=== PATIENT | female | born 1995 | race Caucasian/White ===

== ENCOUNTER → 2017-09-21 | Outpatient (REF) | payer BC ==
[~2017-09-21] MED LIST: FLUT1DIS27 IH; LOR5/325 PO; NORG1TAB75 PO; ONDA4TAB PO
[2017-09-21 11:42] LABS: PLATELET COUNT, AUTOMATED 260 K/uL (150-450)
== END ==
PROVIDERS: ATTEND Physician Assistant Medical
DX: R10.9 Unspecified abdominal pain (principal); R19.7 Diarrhea, unspecified; R11.0 Nausea
CPT/HCPCS: 82040; 82247; 82310; 82374; 82435; 82565; 82947; 83690; 84075; 84132; 84155; 84295; 84450; 84460; 84520; 85025

== ENCOUNTER 2019-03-13 08:48 | Emergency (ER) | payer BC ==
--- NOTE | 2019-03-13 08:44 | ER Report ---
History and Physical Time Seen By MD: 08:40 HPI/ROS CHIEF COMPLAINT: Fall HISTORY OF PRESENT ILLNESS: Patient is a 23-year-old female here with complaints of mid to lower back pain, left ankle pain after a fall of approximately 10-12 feet. Patient reportedly landed on her feet falling backwards onto her back striking a rock. Patient is alert and oriented, denies loss of consciousness. Patient is hemodynamically stable at time of evaluation. Patient is neurovascularly intact in all extremities. REVIEW OF SYSTEMS: Constitutional: No fever, no chills. Eyes: No discharge. ENT: No sore throat. Cardiovascular: No chest pain, no palpitations. Respiratory: No cough, no shortness of breath. Gastrointestinal: No abdominal pain, no vomiting. Genitourinary: No hematuria. Musculoskeletal: + Thoracolumbar to lower lumbar back pain, left ankle pain Skin: No rashes. Neurological: No headache. Neurovascular exam intact in all extremities Allergies: Coded Allergies: No Known Drug Allergies (Unverified , 03/13/19) Home Meds Reported Medications Fluticasone/Salmeterol (ADVAIR 100-50 DISKUS) 1 Each Disk.w.dev, 1 EACH IH BID 06/14/15 Discontinued Reported Medications Norgestimate-Ethinyl Estradiol (TRI-SPRINTEC) 1 Each Tablet, 1 EACH PO DAILY 06/14/15 Discontinued Scripts Ondansetron (ZOFRAN ODT) 4 Mg Tab.rapdis, 4 MG PO Q4-6H for Nausea, #10 TAB Prov:WESLEY SANDRA MD 06/14/15 Hydrocodone Bit/Acetaminophen (HYDROCODON-ACETAMINOPHEN 5-325) 1 Each Tablet, 1 EACH PO Q4-6H for PAIN, #14 TAB TAKE ONE TABLET BY MOUTH EVERY 4-6 HOURS NEEDED FOR PAIN Prov:WESLEY SANDRA MD 06/14/15 Hx Smoking: No Constitutional Vital Sign - Last 24 Hours 03/13/19 03/13/19 08:51 09:30 Pulse 90 Resp 20 B/P (MAP) 141/94 Pulse Ox 93 O2 Delivery Room Air O2 Flow Rate 2.0 Physical Exam General Appearance: The patient is alert, has no immediate need for airway protection and no signs of toxicity. Uncomfortable appearing Eyes: Pupils equal and round no pallor or injection. ENT, Mouth: Mucous membranes are moist. Respiratory: There are no retractions, lungs are clear to auscultation. Cardiovascular: Regular rate and rhythm. Gastrointestinal: Abdomen is soft and non tender, no masses, bowel sounds normal. Neurological: No focal neurological deficits, cranial nerves intact, neurovascular exam intact in all extremities Skin: Warm and dry, no rashes. Musculoskeletal: Neck is supple non tender. + Lower thoracic to lower lumbar back pain, left ankle pain with range of motion, capillary refill less than 3 seconds in all extremities DIFFERENTIAL DIAGNOSIS: After history and physical exam differential diagnosis w as considered for fracture, contusion, dislocation, sprain, intra-abdominal injury, thoracic injury, vascular injury Medical Decision Making Data Points Result Diagram: 03/13/19 0855 03/13/19 0855 Laboratory Hematology Test 03/13/19 08:55 White Blood Count 23.1 k/uL (4.5-11.0) H Red Blood Count 4.80 M/uL (4.17-5.56) Hemoglobin 14.7 g/dL (12.0-16.0) Hematocrit 44.6 % (34.0-47.0) Mean Corpuscular Volume 93.0 fL (80.0-96.0) Mean Corpuscular Hemoglobin 30.6 pg (26.0-33.0) Mean Corpuscular Hemoglobin Concent 32.9 g/dL (32.0-36.0) Red Cell Distribution Width 13.2 % (11.5-14.5) Platelet Count 327 K/uL (150-450) Mean Platelet Volume 8.0 fL (7.2-11.1) Neutrophils (%) (Auto) 89.3 % (39.4-72.5) H Lymphocytes (%) (Auto) 5.8 % (17.6-49.6) L Monocytes (%) (Auto) 4.3 % (4.1-12.4) Eosinophils (%) (Auto) 0.2 % (0.4-6.7) L Basophils (%) (Auto) 0.4 % (0.3-1.4) Nucleated RBC Relative Count (auto) 0.0 /100WBC Neutrophils # (Auto) 20.6 K/uL (2.0-7.4) H Lymphocytes # (Auto) 1.4 K/uL (1.3-3.6) Monocytes # (Auto) 1.0 K/uL (0.3-1.0) Eosinophils # (Auto) 0.0 K/uL (0.0-0.5) Basophils # (Auto) 0.1 K/uL (0.0-0.1) Nucleated RBC Absolute Count (auto) 0.00 K/uL Peripheral Blood Smear Yes Y/N Chemistry Test 03/13/19 08:55 Sodium Level 138 mmol/L (137-145) Potassium Level 4.0 mmol/L (3.5-5.0) Chloride Level 106 mmol/L (98-107) Carbon Dioxide Level 23 mmol/L (22-31) Blood Urea Nitrogen 17 mg/dl (7-18) Creatinine 0.80 mg/dl (0.52-1.04) Glomerular Filtration Rate Calc > 60.0 Random Glucose 114 mg/dl (75-110) Lactate 1.7 mmol/L (0.7-2.1) Calcium Level 9.3 mg/dl (8.4-10.2) Total Bilirubin 1.3 mg/dl (0.2-1.3) Aspartate Amino Transf (AST/SGOT) 35 U/L (0-35) Alanine Aminotransferase (ALT/SGPT) 33 U/L (0-56) Alkaline Phosphatase 64 U/L (0-126) Total Protein 7.4 g/dl (6.3-8.2) Albumin 4.4 g/dl (3.5-5.0) Lipase 82 U/L (23-300) Human Chorionic Gonadotropin, Qual Negative (NEGATIVE) Coagulation Test 03/13/19 08:55 Prothrombin Time 14.2 seconds (12.0-14.4) Prothromb Time International Ratio 1.09 Activated Partial Thromboplast Time 29 seconds (23-35) Toxicology Test 03/13/19 08:55 Serum Alcohol < 10 mg/dl EKG/Imaging Imaging PATIENT NAME: Chanel Solano : 1995 MR: [id number] V: [id number] EXAM DATE: ORDERING PHYSICIAN: MICHELLE KAUFFMAN TECHNOLOGIST: Location: [facility] [place] Patient: Chanel Solano : 1995 Visit/Account:[id number] Date of Sevice: 03/13/2019 ANKLE 3 VIEW MIN LEFT Indication: fall Comparison: None. Findings: There is a comminuted fracture of the calcaneus, with the fracture lines running through the body and anterior portion of the calcaneus. The distal tibia, the distal fibula, and the talus are intact. IMPRESSION: Comminuted fracture of the calcaneus. Report Dictated By: Jorje Brooks at 03/13/2019 9:58 AM Report E-Signed By: Jorje Brooks at 03/13/2019 9:59 AM WSN:[id number] PATIENT NAME: Chanel Solano : 1995 MR: [id number] V: [id number] EXAM DATE: [id number] ORDERING PHYSICIAN: MICHELLE KAUFFMAN TECHNOLOGIST: Location: [facility] [place] Patient: Chanel Solano : 1995 Visit/Account:[id number] Date of Sevice: 03/13/2019 EXAMINATION: CT Head without intravenous contrast CT Cervical spine without intravenous contrast HISTORY: Trauma. TECHNIQUE: Head: Axial images were obtained from the skull base to the vertex without intravenous contrast. Sagittal and coronal reformatted images are also submitted. Cervical spine: Axial images were obtained from the skull base through the uppe r thoracic spine without IV contrast administration. Coronal and sagittal reformatted images were obtained from the axial source data. One of the following dose optimization techniques was utilized in the performance of this exam: Automated exposure control; adjustment of the mA and/or kV according to the patient's size; or use of an iterative reconstruction technique. Specific details can be referenced in the facility's radiology CT exam operational policy. COMPARISON: None available. FINDINGS: HEAD: Brain volume: Normal. Ventricles: Negative. Acute ischemic changes: None. Hemorrhage: None. Masses / edema: None. Wood-white: Negative. White matter: Negative. Vessels: Negative. Extra-axial: Negative. Calvarium / skull base: Negative. Visualized sinuses / orbits: Rightward nasal septal deviation. CERVICAL SPINE: Alignment: Straightening of the normal lordosis. Cranio-cervical junction: Negative. Vertebral bodies: Negative. Posterior elements: Negative. Hardware: None. Disc Spaces: Negative. Soft tissues: Negative. Visualized upper chest: Negative. IMPRESSION: 1. No acute intracranial abnormality. 2. No acute cervical spine fracture. Report Dictated By: Yousif Degroot MD at 03/13/2019 10:03 AM Report E-Signed By: Yousif Degroot MD at 03/13/2019 10:10 AM WSN:[id number] FACILITY: [facility] - [place], [place] PATIENT NAME: Chanel Solano : 1995 MR: [id number] V: [id number] EXAM DATE: ORDERING PHYSICIAN: MICHELLE KAUFFMAN TECHNOLOGIST: Location: [facility] [place] Patient: Chanel Solano : 1995 Visit/Account:[id number] Date of Sevice: 03/13/2019 CT CHEST ABDOMEN PELVIS W/CON HISTORY: fall [place], low back pain ADDITIONAL HISTORY: None. TECHNIQUE: Following administration of IV contrast axial images acquired throug h the chest abdomen and pelvis during the portal venous phase. Coronal and sagittal reformatting was also performed.Dose Lowering Technique One of the following dose optimization techniques was utilized in the performance of this exam: Automated exposure control; adjustment of the mA and/or kV according to the patient's size; or use of an iterative reconstruction technique. Specific details can be referenced in the facility's radiology CT exam operational policy. CONTRAST: 75 mL Isovue-370 COMPARISON: None. FINDINGS: CHEST: Lungs/Pleura: Negative. Mediastinum/lymph nodes: [place] shaped soft tissue density material in the anterior mediastinum likely represents a small amount of residual thymus Heart/vessels: Negative. Bones/soft tissues: Negative ABDOMEN AND PELVIS: Hepatobiliary: Negative. Spleen: Negative. Pancreas: Negative. Adrenals: Negative. Kidneys ureters and bladder : Negative. Genitalia: There Is an IUD within the uterus GI: The stomach is moderately distended with fluid Vessels/spaces/nodes: There is a trace amount of free pelvic fluid Bones/soft tissues: There Is a hematoma in the right psoas muscle measuring approximately 4.9 x 3.4 x 8.4 cm There is a burst type comminuted fracture through the L2 vertebral body with approximate 9 mm retropulsion of bony fragments. There is approximately 60-70% loss of height. There is a oblique fracture through the right lamina of L2 extending into the right facet. There is also a mild compression fracture of the super endplate of L3 with a corner fracture through the anterior superior endplate Additional findings: None pertinent. IMPRESSION: There is a significant burst fracture involving the L2 vertebral body with 60- 70% loss of height. There are retropulsed bony fragments projecting 9 mm into the spinal canal. There is an oblique fracture through the right lamina of L2 extending into the right facet. MR may be helpful for further evaluation of the spinal canal Mild compression fracture of the super endplate of L3 with a corner fracture through the anterior superior endplate There is a large hematoma in the right psoas muscle measuring 4.9 x 3.4 x 8.4 cm Results were called to MICHELLE KAUFFMAN at 03/13/2019 10:09 AM. Report Dictated By: Lorri Greene MD at 03/13/2019 9:42 AM Report E-Signed By: Lorri Greene MD at 03/13/2019 10:13 AM WSN:[id number] Left shoulder, 3 views. HISTORY: Shoulder pain. COMPARISON: None. The acromioclavicular and the glenohumeral joints are unremarkable. The subacromial space is unremarkable. No fractures are identified. IMPRESSION: Negative for acute bony abnormality. Report Dictated By: Artis Pérez MD at 03/13/2019 10:12 AM Report E-Signed By: Artis Pérez MD at 03/13/2019 10:13 AM WSN:[id number] FACILITY: [facility] - [place], [place] PATIENT NAME: Chanel Solano : 1995 MR: [id number] V: [id number] EXAM DATE: ORDERING PHYSICIAN: MICHELLE KAUFFMAN TECHNOLOGIST: Location: [facility] [place] Patient: Chanel Solano : 1995 Visit/Account:[id number] Date of Sevice: 03/13/2019 EXAMINATION: CT Head without intravenous contrast CT Cervical spine without intravenous contrast HISTORY: Trauma. TECHNIQUE: Head: Axial images were obtained from the skull base to the vertex without intravenous contrast. Sagittal and coronal reformatted images are also submitted. Cervical spine: Axial images were obtained from the skull base through the upper thoracic spine without IV contrast administration. Coronal and sagittal reformatted images were obtained from the axial source data. One of the following dose optimization techniques was utilized in the performance of this exam: Automated exposure control; adjustment of the mA and/or kV according to the patient's size; or use of an iterative reconstruction technique. Specific details can be referenced in the facility's radiology CT exam operational policy. COMPARISON: None available. FINDINGS: HEAD: Brain volume: Normal. Ventricles: Negative. Acute ischemic changes: None. Hemorrhage: None. Masses / edema: None. Wood-white: Negative. White matter: Negative. Vessels: Negative. Extra-axial: Negative. Calvarium / skull base: Negative. Visualized sinuses / orbits: Rightward nasal septal deviation. CERVICAL SPINE: Alignment: Straightening of the normal lordosis. Cranio-cervical junction: Negative. Vertebral bodies: Negative. Posterior elements: Negative. Hardware: None. Disc Spaces: Negative. Soft tissues: Negative. Visualized upper chest: Negative. IMPRESSION: 1. No acute intracranial abnormality. 2. No acute cervical spine fracture. Report Dictated By: Yousif Degroot MD at 03/13/2019 10:03 AM Report E-Signed By: Yousif Degroot MD at 03/13/2019 10:10 AM WSN:[id number] ED Course/Re-evaluation ED Course Patient is a 23-year-old female fell victim from 10-12 feet and landed on her feet and then subsequently fell backwards onto her back onto a rock. No loss of consciousness. Patient was neurovascularly intact in the distal extremities with good motor strength and neurovascular exam in the lower extremities. Capillary refill less than 3 seconds in all extremities. Patient was found to have a left calcaneal fracture, L2 burst fracture with 9 mm of retropulsion, L3 mild compression fracture, right psoas hematoma on CT imaging. Patient was alert and oriented and hemodynamically stable throughout course. Patient was given fentanyl, Dilaudid, ketamine for analgesia. I discussed the patient with Dr. Noe with [facility] trauma team who accepted the patient in transfer. Patient will be transferred logroll only. Decision to Disposition Date: Mar 13, 2019 Decision to Disposition Time: 10:29 Depart Departure Latest Vital Signs Vital Signs Date Time Temp Pulse Resp B/P (MAP) Pulse Ox O2 Delivery O2 Flow Rate FiO2 03/13/19 09:30 2.0 03/13/19 08:51 90 20 141/94 93 Room Air Impression: Primary Impression: Lumbar burst fracture Additional Impressions: Left calcaneal fracture Fall Condition: Condition Unchanged Disposition: XFER TO [facility]UTE [facility] Problem Qualifiers MICHELLE KAUFFMAN DO Mar 13, 2019 08:44
[~2019-03-13 08:48] MED LIST changes: +DIPHTH/TETANUS/ACEL. PERTUSSIS IM ONE; +NS(*) 0.9% 1000 ML BAG 1,000 ML IV ONE; +fentaNYL CITR 100 MCG/2 ML AMP IVP ONE
[2019-03-13 09:12] LABS: PLATELET COUNT, AUTOMATED 327 K/uL (150-450)
[2019-03-13 09:18] LABS: INR 1.09
[2019-03-13] MEDS ORDERED: IOPAMIDOL 76% 100 ML INFUS BTL 100 ML ONE (09:20)
[2019-03-13] MEDS ORDERED: fentaNYL CITR 100 MCG/2 ML AMP IVP ONE (09:25)
[2019-03-13] MEDS ORDERED: HYDROMORPHONE HCL 1 MG/ML SYRINGE IVP ONE ×2 (10:00→11:50)
[2019-03-13 10:02] VITALS: BP 130/72
--- NOTE | 2019-03-13 10:07 | RADIOLOGY IMAGING REPORT ---
FACILITY: [facility] PATIENT NAME: Chanel Solano : 1995 MR: [id number] V: [id number] EXAM DATE: ORDERING PHYSICIAN: MICHELLE KAUFFMAN TECHNOLOGIST: Location: [facility] [place] Patient: Chanel Solano : 1995 Visit/Account:[id number] Date of Sevice: 03/13/2019 ANKLE 3 VIEW MIN LEFT Indication: fall Comparison: None. Findings: There is a comminuted fracture of the calcaneus, with the fracture lines running through th e body and anterior portion of the calcaneus. The distal tibia, the distal fibula, and the talus are intact. IMPRESSION: Comminuted fracture of the calcaneus. Report Dictated By: Jorje Brooks at 03/13/2019 9:58 AM Report E-Signed By: Jorje Brooks at 03/13/2019 9:59 AM WSN:[id number]
--- NOTE | 2019-03-13 10:19 | RADIOLOGY IMAGING REPORT ---
FACILITY: [facility] - [place] PATIENT NAME: Chanel Solano : 1995 MR: [id number] V: [id number] EXAM DATE: ORDERING PHYSICIAN: MICHELLE KAUFFMAN TECHNOLOGIST: Location: [facility] [place] Patient: Chanel Solano : 1995 Visit/Account:[id number] Date of Sevice: 03/13/2019 EXAMINATION: CT Head without intravenous contrast CT Cervical spine without intravenous contrast HISTORY: Trauma. TECHNIQUE: Head: Axial images were obtained from the skull base to the vertex without intravenous contrast. Sa gittal and coronal reformatted images are also submitted. Cervical spine: Axial images were obtained from the skull base through the upper thoracic spine with out IV contrast administration. Coronal and sagittal reformatted images were obtained from the axial source data. One of the following dose optimization techniques was utilized in the performance of this exam: Autom ated exposure control; adjustment of the mA and/or kV according to the patient's size; or use of an i terative reconstruction technique. Specific details can be referenced in the facility's radiology C T exam operational policy. COMPARISON: None available. FINDINGS: HEAD: Brain volume: Normal. Ventricles: Negative. Acute ischemic changes: None. Hemorrhage: None. Masses / edema: None. Wood-white: Negative. White matter: Negative. Vessels: Negative. Extra-axial: Negative. Calvarium / skull base: Negative. Visualized sinuses / orbits: Rightward nasal septal deviation. CERVICAL SPINE: Alignment: Straightening of the normal lordosis. Cranio-cervical junction: Negative. Vertebral bodies: Negative. Posterior elements: Negative. Hardware: None. Disc Spaces: Negative. Soft tissues: Negative. Visualized upper chest: Negative. IMPRESSION: 1. No acute intracranial abnormality. 2. No acute cervical spine fracture. Report Dictated By: Yousif Degroot MD at 03/13/2019 10:03 AM Report E-Signed By: Yousif Degroot MD at 03/13/2019 10:10 AM WSN:[id number]
--- NOTE | 2019-03-13 10:19 | RADIOLOGY IMAGING REPORT ---
FACILITY: [facility] - [place] PATIENT NAME: Chanel Solano : 1995 MR: [id number] V: [id number] EXAM DATE: ORDERING PHYSICIAN: MICHELLE KAUFFMAN TECHNOLOGIST: [place] [facility] [place]: Chanel Solano : 1995 Visit/Account:[id number] Date of Sevice: 03/13/2019 EXAMINATION: CT Head without intravenous contrast CT Cervical spine without intravenous contrast HISTORY: Trauma. TECHNIQUE: Head: Axial images were obtained from the skull base to the vertex without intravenous contrast. Sa gittal and coronal reformatted images are also submitted. Cervical spine: Axial images were obtained from the skull base through the upper thoracic spine with out IV contrast administration. Coronal and sagittal reformatted images were obtained from the axial source data. One of the following dose optimization techniques was utilized in the performance of this exam: Autom ated exposure control; adjustment of the mA and/or kV according to the patient's size; or use of an i terative reconstruction technique. Specific details can be referenced in the facility's radiology C T exam operational policy. COMPARISON: None available. FINDINGS: HEAD: Brain volume: Normal. Ventricles: Negative. Acute ischemic changes: None. Hemorrhage: None. Masses / edema: None. Wood-white: Negative. White matter: Negative. Vessels: Negative. Extra-axial: Negative. Calvarium / skull base: Negative. Visualized sinuses / orbits: Rightward nasal septal deviation. CERVICAL SPINE: Alignment: Straightening of the normal lordosis. Cranio-cervical junction: Negative. Vertebral bodies: Negative. Posterior elements: Negative. Hardware: None. Disc Spaces: Negative. Soft tissues: Negative. Visualized upper chest: Negative. IMPRESSION: 1. No acute intracranial abnormality. 2. No acute cervical spine fracture. Report Dictated By: Yousif Degroot MD at 03/13/2019 10:03 AM Report E-Signed By: Yousif Degroot MD at 03/13/2019 10:10 AM WSN:[id number]
--- NOTE | 2019-03-13 10:22 | RADIOLOGY IMAGING REPORT ---
FACILITY: [facility] - [place] PATIENT NAME: Chanel Solano : 1995 MR: [id number] V: [id number] EXAM DATE: ORDERING PHYSICIAN: MICHELLE KAUFFMAN TECHNOLOGIST: Location: [facility] Patient: Chanel Solano : 1995 Visit/Account:[id number] Date of Sevice: 03/13/2019 CT CHEST ABDOMEN PELVIS W/CON HISTORY: fall [place], low back pain ADDITIONAL HISTORY: None. TECHNIQUE: Following administration of IV contrast axial images acquired through the chest abdomen a nd pelvis during the portal venous phase. Coronal and sagittal reformatting was also performed.Dose Lowering Technique One of the following dose optimization techniques was utilized in the performance of this exam: Autom ated exposure control; adjustment of the mA and/or kV according to the patient's size; or use of an i terative reconstruction technique. Specific details can be referenced in the facility's radiology C T exam operational policy. CONTRAST: 75 mL Isovue-370 COMPARISON: None. FINDINGS: CHEST: Lungs/Pleura: Negative. Mediastinum/lymph nodes: [place] shaped soft tissue density material in the anterior mediastinum li pramod represents a small amount of residual thymus Heart/vessels: Negative. Bones/soft tissues: Negative ABDOMEN AND PELVIS: Hepatobiliary: Negative. Spleen: Negative. Pancreas: Negative. Adrenals: Negative. Kidneys ureters and bladder : Negative. Genitalia: There Is an IUD within the uterus GI: The stomach is moderately distended with fluid Vessels/spaces/nodes: There is a trace amount of free pelvic fluid Bones/soft tissues: There Is a hematoma in the right psoas muscle measuring approximately 4.9 x 3.4 x 8.4 cm There is a burst type comminuted fracture through the L2 vertebral body with approximate 9 mm retropu lsion of bony fragments. There is approximately 60-70% loss of height. There is a oblique fracture through the right lamina of L2 extending into the right facet. There is also a mild compression fracture of the super endplate of L3 with a corner fracture through the anterior superior endplate Additional findings: None pertinent. IMPRESSION: There is a significant burst fracture involving the L2 vertebral body with 60-70% loss of height. Th ere are retropulsed bony fragments projecting 9 mm into the spinal canal. There is an oblique fractu re through the right lamina of L2 extending into the right facet. MR may be helpful for further eval uation of the spinal canal Mild compression fracture of the super endplate of L3 with a corner fracture through the anterior sup erior endplate There is a large hematoma in the right psoas muscle measuring 4.9 x 3.4 x 8.4 cm Results were called to MICHELLE KAUFFMAN at 03/13/2019 10:09 AM. Report Dictated By: Lorri Greene MD at 03/13/2019 9:42 AM Report E-Signed By: Lorri Greene MD at 03/13/2019 10:13 AM WSN:[email or web address]
[2019-03-13] MEDS ORDERED: KETAMINE HCL-NS 50 MG/5 ML SYR IVP ONE ×2 (10:35→11:50)
[2019-03-13] MEDS ORDERED: KETAMINE HCL 500 MG/5 ML VIAL IVP ONE (10:35)
[2019-03-13] MEDS ORDERED: methylPREDNIS SUCC 125 MG/2ML IVP ONE (11:40)
[2019-03-13] MEDS ORDERED: ONDANSETRON 4 MG/2 ML VIAL ONE (11:52)
[2019-03-13] MEDS ORDERED: ONDANSETRON 4 MG/2 ML VIAL IVP ONE (12:00)
== END 2019-03-13 12:03 | disposition short-term general hospital (02) ==
LOC: ER 09:31
DX: S32.021A Stable burst fracture of second lumbar vertebra, initial encounter for closed fracture (principal); S32.030A Wedge compression fracture of third lumbar vertebra, initial encounter for closed fracture; S92.002A Unspecified fracture of left calcaneus, initial encounter for closed fracture; W17.89XA Other fall from one level to another, initial encounter
CPT/HCPCS: 70450; 71260; 72125; 73610; 74177; 80320; 81001; 83605; 83690; 84703; 85025; 85610; 85730; 90715; 96361; 96374; 96375; 96376; 99284; C1758; J1170; J2405; J2930; J3010; J3490; J7030; Q9967; 82040; 82247; 82310; 82374; 82435; 82565; 82947; 84075; 84132; 84155; 84295; 84450; 84460; 84520

== ENCOUNTER → 2019-03-13 | Outpatient (CLI) | payer BC | LOC: AMB 06:57 | PROVIDERS: ATTEND Nurse Practitioner | DX: M54.5 Low back pain (principal); R10.2 Pelvic and perineal pain; M25.551 Pain in right hip; W17.89XA Other fall from one level to another, initial encounter; Y93.31 Activity, mountain climbing, rock climbing and wall climbing; Y92.9 Unspecified place or not applicable | CPT/HCPCS: A0425; A0433 ==

== ENCOUNTER → 2019-03-13 | Outpatient (CLI) | payer BC | LOC: AMB 11:42 | PROVIDERS: ATTEND Nurse Practitioner | DX: S32.009A Unspecified fracture of unspecified lumbar vertebra, initial encounter for closed fracture (principal); S92.002A Unspecified fracture of left calcaneus, initial encounter for closed fracture; W17.89XA Other fall from one level to another, initial encounter | CPT/HCPCS: A0425; A0433 ==